=== PATIENT | female | born 1945 | race Caucasian/White ===

== ENCOUNTER 2016-11-02 09:31 | Emergency (ER) | payer MEDICARE ==
[~2016-11-02] VITALS: Ht 160 cm; Wt 78.0 kg
[~2016-11-02 09:31] MED LIST: BUPR300T4 PO; CYCL-259 PO; DEXL60CA PO; DILT180C72 PO; ESZO3TAB9 PO; LETR2.5T PO; LISI1TAB7 PO; MULT1TAB11 PO; NAPR500T3 PO; OXYC20TA2 PO; OXYC80TA25 PO; VENL150T PO
[2016-11-02] MEDS ORDERED: OXYC20TA2 PO (09:54)
[2016-11-02] MEDS ORDERED: FURO-93 PO (09:56)
[2016-11-02] MEDS ORDERED: LEVO500T8 PO (10:01)
[2016-11-02] MEDS ORDERED: ZOLP10TA PO (10:02)
[2016-11-02 10:41] VITALS: BP 99/79
== END 2016-11-02 11:07 | disposition home or self-care (01) ==
LOC: ED 10:40
DX: S49.92XA Unspecified injury of left shoulder and upper arm, initial encounter (principal); I10 Essential (primary) hypertension; W01.0XXA Fall on same level from slipping, tripping and stumbling without subsequent striking against object, initial encounter; Y93.89 Activity, other specified; Y92.89 Other specified places as the place of occurrence of the external cause; Y99.8 Other external cause status
CPT/HCPCS: 73060; 99284; J7512

== ENCOUNTER 2017-04-25 16:02 | Emergency (ER) | payer MEDICARE ==
[~2017-04-25] VITALS: Ht 170.2 cm; Wt 82.0 kg
[~2017-04-25 16:02] MED LIST changes: -DEXL60CA PO; +DEXL60CA2 PO; +ESZO3TAB28 PO; -ESZO3TAB9 PO; +FURO-93 PO; +LEVO500T8 PO; +ZOLP10TA PO
[2017-04-25 16:11] VITALS: BP 119/59
[2017-04-25] MEDS ORDERED: SODIUM CHLORIDE 0.9% 1,000 ML IV ONE (16:18)
[2017-04-25] MEDS ORDERED: SODIUM CHLORIDE FLUSH 10ML SYR IVF ONE (16:30)
[2017-04-25] MEDS ORDERED: SODIUM CHLORIDE 0.9% 1,000ML IVBOLUS ONE (16:30)
[2017-04-25 16:44] LABS: HEMATOCRIT 36.5 % (34.6-47.8); HEMOGLOBIN 12.1 g/dL (11.7-16.4)
[2017-04-25 16:50] LABS: BLOOD UREA NITROGEN 23 mg/dL (7-18)
== END 2017-04-25 19:11 | disposition home or self-care (01) ==
LOC: ED 16:51
DX: K92.1 Melena (principal); R19.7 Diarrhea, unspecified; I10 Essential (primary) hypertension; Z90.49 Acquired absence of other specified parts of digestive tract
CPT/HCPCS: 36415; 74020; 74176; 80048; 82040; 85025; 85610; 93005; 99285

== ENCOUNTER 2017-07-18 12:56 | Inpatient (IN) | payer MEDICARE ==
[~2017-07-18] VITALS: Ht 160 cm; Wt 83.3 kg
[~2017-07-18 12:56] MED LIST changes: -NAPR500T3 PO; +NAPR500T4 PO
[2017-07-18] MEDS ORDERED: [UNRECOGNIZED DRUG - OTHER] MC PRN (13:30)
[2017-07-18] MEDS ORDERED: SODIUM CHLORIDE FLUSH 10ML SYR IVF ONE (13:30)
[2017-07-18] MEDS ORDERED: MIRA25TA PO (13:36)
[2017-07-18] MEDS ORDERED: PREG25CA PO (13:36)
[2017-07-18] MEDS ORDERED: RANI-276 PO (13:36)
[2017-07-18] MEDS ORDERED: RABE20TA18 PO (13:36)
[2017-07-18] MEDS ORDERED: MECL12.52 PO (13:36)
[2017-07-18 13:50] LABS: HEMATOCRIT 36.5 % (34.6-47.8); HEMOGLOBIN 12.2 g/dL (11.7-16.4); WHITE BLOOD COUNT 5.4 x10^3/uL (3.4-10)
[2017-07-18 14:00] LABS: BLOOD UREA NITROGEN 19 mg/dL (7-18)
[2017-07-18 14:07] LABS: ASPARTATE AMINO TRANSFERASE 14 U/L (15-37)
[2017-07-18 14:21] LABS: IS PT STATUS REG ER OR PRE ER? YES
[2017-07-18] MEDS ORDERED: SODIUM CHLORIDE 0.9% 1,000 ML IV ONE (14:47)
[2017-07-18] MEDS ORDERED: HEPARIN 5,000 UNITS/ML, 1ML SQ SCH (15:00)
[2017-07-18] MEDS ORDERED: LABETALOL 5MG/ML, 20ML IVPush PRN (15:00)
[2017-07-18] MEDS ORDERED: ACETAMINOPHEN 325 MG TABLET PO PRN (15:00)
[2017-07-18] MEDS ORDERED: DOCUSATE 100 MG CAPSULE PO PRN (15:00)
[2017-07-18] MEDS ORDERED: POLYETHYLENE GLYCOL 17 GM PACKET PO PRN (15:00)
[2017-07-18] MEDS ORDERED: SODIUM CHLORIDE FLUSH 10ML SYR IVF PRN (15:00)
[2017-07-18] MEDS ORDERED: ONDANSETRON 2MG/ML, 2ML IVPush PRN (15:00)
[2017-07-18] MEDS ORDERED: BISACODYL 10 MG SUPP PR PRN (15:00)
[2017-07-18] MEDS ORDERED: NAPROXEN 500 MG TABLET PO PRN (15:30)
[2017-07-18] MEDS ORDERED: PREGABALIN 25 MG CAPSULE PO SCH (15:30)
[2017-07-18 16:56] VITALS: BP 103/63
[2017-07-18 16:57] VITALS: BP 122/68
[2017-07-18 16:58] VITALS: BP 122/69
[2017-07-18] MEDS ORDERED: PLEASE ENTER HEIGHT AND WEIGHT MC SCH ×3 (17:00→17:30)
[2017-07-18] MEDS ORDERED: PLEASE ENTER PATIENTS WEIGHT MC SCH (17:00)
[2017-07-18] MEDS ORDERED: HEPARIN 5,000 UNITS/ML, 1ML IV ONE (17:30)
[2017-07-18] MEDS ORDERED: HEPARIN 25,000 UNITS/500ML PMX 500 ML IV PRN (17:30)
[2017-07-18] MEDS ORDERED: HEPARIN 5,000 UNITS/ML, 1ML IV PRN (17:30)
[2017-07-18] MEDS: SODIUM CHLORIDE 0.9% 1,000 ML IV SCH (17:46)
[2017-07-18] MEDS: OXYcodone IR 30 MG TABLET PO SCH ×2 (17:46→21:00)
[2017-07-18 18:12] LABS: IS PT STATUS REG ER OR PRE ER? NO
[2017-07-18 20:00] VITALS: BP 105/59
[2017-07-18 20:01] VITALS: BP 121/68
[2017-07-18 20:02] VITALS: BP 125/69
[2017-07-18] MEDS: HEPARIN 5,000 UNITS/ML, 1ML SQ SCH (20:29)
[2017-07-18] MEDS ORDERED: BUPROPION SR 150 MG TABLET PO SCH (21:00)
[2017-07-18] MEDS: ZOLPIDEM 10MG TABLET PO SCH (21:00)
[2017-07-18] MEDS ORDERED: ZOLPIDEM 5MG TABLET ONE (22:30)
[2017-07-18] MEDS: GUAIFENESIN ER 600 MG TABLET PO SCH (22:33)
[2017-07-18] MEDS: BUPROPION SR 150 MG TABLET PO SCH (22:53)
[2017-07-19] VITALS (10 sets, daily range): BP systolic 117–165; BP diastolic 63–86
[2017-07-19 01:22] LABS: IS PT STATUS REG ER OR PRE ER? NO
[2017-07-19] MEDS: SODIUM CHLORIDE 0.9% 1,000 ML IV SCH (03:22)
[2017-07-19] MEDS ORDERED: OXYcodone IR 5MG TABLET ONE ×2 (04:47→20:49)
[2017-07-19] MEDS: HEPARIN 5,000 UNITS/ML, 1ML SQ SCH ×3 (04:52→20:57)
[2017-07-19] MEDS: OXYcodone IR 30 MG TABLET PO SCH ×4 (04:52→20:55)
[2017-07-19 05:38] LABS: HEMOGLOBIN 11.1 g/dL (11.7-16.4)
[2017-07-19 06:14] LABS: ASPARTATE AMINO TRANSFERASE 14 U/L (15-37); BLOOD UREA NITROGEN 18 mg/dL (7-18)
[2017-07-19] MEDS ORDERED: HYDROCHLOROTHIAZIDE 25 MG TABLET PO SCH (09:00)
[2017-07-19] MEDS ORDERED: LISINOPRIL 20 MG TABLET PO SCH (09:00)
[2017-07-19] MEDS: LISINOPRIL 20 MG TABLET PO SCH (09:08)
[2017-07-19] MEDS: HYDROCHLOROTHIAZIDE 25 MG TABLET PO SCH (09:08)
[2017-07-19] MEDS: DILTIAZEM CD 180 MG CAP.ER.24H PO SCH (09:08)
[2017-07-19] MEDS: GUAIFENESIN ER 600 MG TABLET PO SCH ×2 (09:08→20:57)
[2017-07-19] MEDS: BUPROPION SR 150 MG TABLET PO SCH ×2 (09:08→20:57)
[2017-07-19 15:01] LABS: ABG COLLECTION SITE RIGHT BRACHIAL
[2017-07-19] MEDS ORDERED: BUPR300T49 PO (18:00)
[2017-07-19] MEDS ORDERED: PREG150C PO (18:00)
[2017-07-19] MEDS ORDERED: ZOLPIDEM 5MG TABLET ONE (20:49)
[2017-07-19] MEDS: ZOLPIDEM 10MG TABLET PO SCH (20:56)
[2017-07-19] MEDS ORDERED: POTA10TA11 PO (21:31)
[2017-07-20 02:00] VITALS: BP 153/72
[2017-07-20] MEDS: HEPARIN 5,000 UNITS/ML, 1ML SQ SCH ×2 (04:30→12:30)
[2017-07-20 05:49] LABS: HEMATOCRIT 34.8 % (34.6-47.8); HEMOGLOBIN 11.7 g/dL (11.7-16.4); WHITE BLOOD COUNT 5.9 x10^3/uL (3.4-10)
[2017-07-20] MEDS: OXYcodone IR 30 MG TABLET PO SCH ×2 (05:55→11:00)
[2017-07-20 06:03] LABS: BLOOD UREA NITROGEN 14 mg/dL (7-18)
[2017-07-20 07:27] VITALS: BP 137/72
[2017-07-20] MEDS: DILTIAZEM CD 180 MG CAP.ER.24H PO SCH (09:08)
[2017-07-20] MEDS: LISINOPRIL 20 MG TABLET PO SCH (09:09)
[2017-07-20] MEDS: HYDROCHLOROTHIAZIDE 25 MG TABLET PO SCH (09:09)
[2017-07-20] MEDS: GUAIFENESIN ER 600 MG TABLET PO SCH (09:10)
[2017-07-20] MEDS: BUPROPION SR 150 MG TABLET PO SCH (09:10)
[2017-07-20] MEDS ORDERED: OXYcodone IR 5MG TABLET ONE (12:01)
[2017-07-20 13:40] VITALS: BP 113/63
== END 2017-07-20 16:13 | disposition home or self-care (01) | DRG 682 ==
LOC: ED 14:00 → 4EST 16:34 → DCLOUNGE 07-20 16:05
PROVIDERS: ADMIT Internal Medicine; ATTEND Internal Medicine
DX: N17.0 Acute kidney failure with tubular necrosis (principal); J96.01 Acute respiratory failure with hypoxia; E44.0 Moderate protein-calorie malnutrition; W18.30XA Fall on same level, unspecified, initial encounter; I11.9 Hypertensive heart disease without heart failure; M79.7 Fibromyalgia; J20.8 Acute bronchitis due to other specified organisms; R91.8 Other nonspecific abnormal finding of lung field; Z77.29 Contact with and (suspected) exposure to other hazardous substances; Z66 Do not resuscitate; F32.9 Major depressive disorder, single episode, unspecified; Z85.3 Personal history of malignant neoplasm of breast; Z91.041 Radiographic dye allergy status; Z68.32 Body mass index [BMI] 32.0-32.9, adult; Z90.11 Acquired absence of right breast and nipple; Z90.49 Acquired absence of other specified parts of digestive tract; Z80.9 Family history of malignant neoplasm, unspecified; Z79.899 Other long term (current) drug therapy
CPT/HCPCS: 36415; 36600; 71010; 71250; 78582; 80048; 80053; 82803; 83880; 84443; 84484; 85025; 85379; 85610; 85730; 93005; 93306; 93970; 96360; J1644; A9540; A9558; J7030

== ENCOUNTER 2017-07-26 15:45 | Inpatient (IN) | payer MEDICARE ==
[~2017-07-26] VITALS: Ht 152.4 cm; Wt 82.6 kg
[~2017-07-26 15:45] MED LIST changes: +BUPR300T49 PO; +MECL12.52 PO; +MIRA25TA PO; +POTA10TA11 PO; +PREG150C PO; +PREG25CA PO; +RABE20TA18 PO; +RANI-276 PO
[2017-07-26] MEDS ORDERED: SODIUM CHLORIDE FLUSH 10ML SYR IVF ONE (16:00)
[2017-07-26] MEDS: ALBUTEROL 0.5%, 20ML NPPB SCH ×2 (16:12→18:10)
[2017-07-26] MEDS ORDERED: ALBUTEROL SULFATE 2.5 MG/3 ML ONE (16:12)
[2017-07-26 16:34] LABS: BASOPHILS # (AUTO) 0.01 x10^3/uL (0-0.1); BASOPHILS % (AUTO) 0 % (0-1); EOSINOPHILS # (AUTO) 0.12 x10^3/uL (0-0.4); EOSINOPHILS % (AUTO) 2 % (1-7); LYMPHOCYTES # (AUTO) 0.56 x10^3/uL (1-3.4); LYMPHOCYTES % (AUTO) 8 % (22-44); MD NO; MEAN CORPUSCULAR HGB CONC 33.1 g/dL (32.4-35.8); MEAN CORPUSCULAR VOLUME 93.7 fL (80-100); MEAN PLATELET VOLUME 7.9 fL (7.4-10.4); MONOCYTES # (AUTO) 0.64 x10^3/uL (0.2-0.8); MONOCYTES % (AUTO) 9 % (2-9); NEUTROPHILS % (AUTO) 81 % (42-75); PLATELET COUNT 204 x10^3/uL (130-400); RED BLOOD COUNT 3.59 x10^6/uL (3.82-5.3); RED CELL DISTRIBUTION WIDTH 15.5 % (9.6-15.2)
[2017-07-26 16:45] LABS: ALANINE AMINOTRANSFERASE 19 U/L (12-78); ALBUMIN 3.1 g/dL (3.4-5.0); ANION GAP 8 mmol/L (5-15); CALCIUM 8.4 mg/dL (8.5-10.1); CHLORIDE 98 mmol/L (98-107); CREATININE 1.75 mg/dL (0.55-1.02)
[2017-07-26 16:49] LABS: ALKALINE PHOSPHATASE 108 U/L (45-117); BILIRUBIN,TOTAL 0.9 mg/dL (0.2-1.0); TOTAL PROTEIN 6.6 g/dL (6.4-8.2); TROPONIN I < 0.015 ng/mL (0.000-0.045)
[2017-07-26] MEDS ORDERED: ALBUTEROL 0.5%, 20ML ONE ×2 (17:47→18:02)
[2017-07-26 20:20] VITALS: BP 94/67
[2017-07-26] MEDS ORDERED: FUROSEMIDE 40 MG/4 ML IV ONE (21:00)
[2017-07-26 21:11] LABS: HEMOGLOBIN A1C 5.3 % (4.2-6.3)
[2017-07-26] MEDS: methylPREDNISolone SOD SUCC 125 MG/2 ML IVPush SCH (22:00)
[2017-07-26] MEDS: HEPARIN 5,000 UNITS/ML, 1ML SQ SCH (22:01)
[2017-07-26] MEDS: SODIUM CHLORIDE 0.9% 1,000 ML IV SCH (22:22)
[2017-07-27] MEDS: methylPREDNISolone SOD SUCC 125 MG/2 ML IVPush SCH ×4 (03:57→20:53)
[2017-07-27] MEDS: HEPARIN 5,000 UNITS/ML, 1ML SQ SCH ×3 (03:57→20:54)
[2017-07-27] MEDS: ASPIRIN 325 MG TABLET EC PO SCH (04:29)
[2017-07-27 04:51] LABS: MEAN CORPUSCULAR HEMOGLOBIN 31.2 pg (27.0-34.8); MEAN CORPUSCULAR HGB CONC 33.6 g/dL (32.4-35.8); MEAN CORPUSCULAR VOLUME 92.9 fL (80-100); MEAN PLATELET VOLUME 7.9 fL (7.4-10.4); PLATELET COUNT 202 x10^3/uL (130-400); RED BLOOD COUNT 3.51 x10^6/uL (3.82-5.3); RED CELL DISTRIBUTION WIDTH 15.4 % (9.6-15.2)
[2017-07-27 05:04] LABS: ALBUMIN 3.1 g/dL (3.4-5.0); CALCIUM 8.2 mg/dL (8.5-10.1); CHLORIDE 99 mmol/L (98-107)
[2017-07-27 05:16] LABS: ALANINE AMINOTRANSFERASE 25 U/L (12-78); ALKALINE PHOSPHATASE 115 U/L (45-117); ANION GAP 9 mmol/L (5-15); BILIRUBIN,TOTAL 0.7 mg/dL (0.2-1.0); CHOL/HDL RATIO 2.3; CHOLESTEROL, TOTAL 175 mg/dL (140-239); CREATININE 1.61 mg/dL (0.55-1.02); HDL CHOL % 43 % (28-40); HDL CHOLESTEROL (DIRECT) 75 mg/dL (40-60); LDL CHOLESTEROL,CALCULATED 89 mg/dL (54-169); LDL/HDL RATIO 1.2 (0.5-3.0); THYROID STIMULATING HORMONE 0.722 mIU/L (0.358-3.740); TOTAL PROTEIN 6.7 g/dL (6.4-8.2); TRIGLYCERIDES 57 mg/dL (50-200); VLDL CHOLESTEROL 11 mg/dL (0-25)
[2017-07-27] MEDS ORDERED: ALBUTEROL/IPRATROPIUM 2.5MG/0.5MG, 3 ML ONE (06:50)
[2017-07-27 07:06] LABS: MD YES
[2017-07-27 07:07] LABS: BANDS%(MANUAL) 13 % (0-7); LYMPHS% (MANUAL) 1 % (22-44); MONOS% (MANUAL) 1 % (2-9); SEGS% (MANUAL) 85 % (42-75)
[2017-07-27 07:08] LABS: <PLATELET ESTIMATE> ADEQUATE; <PLT MORPHOLOGY> NORMAL PLT MORPH; <RBC MORPHOLOGY> NORMAL
[2017-07-27] MEDS: ALBUTEROL/IPRATROPIUM 2.5MG/0.5MG, 3 ML NPPB SCH ×4 (08:36→20:30)
[2017-07-27 10:00] VITALS: BP 118/76
[2017-07-27] MEDS: OXYcodone IR 30 MG TABLET PO SCH ×3 (11:00→20:54)
[2017-07-27] MEDS ORDERED: OXYcodone IR 5MG TABLET ONE (11:45)
[2017-07-27] MEDS: SODIUM CHLORIDE 0.9% 1,000 ML IV SCH ×2 (12:20→21:59)
[2017-07-27 13:04] VITALS: BP 112/58
[2017-07-27] MEDS: PREGABALIN 150 MG CAPSULE PO SCH ×2 (16:14→20:53)
[2017-07-27 19:42] VITALS: BP 128/74
[2017-07-27] MEDS: ZOLPIDEM 10MG TABLET PO PRN (21:59)
[2017-07-28 01:50] VITALS: BP 120/68
[2017-07-28] MEDS: methylPREDNISolone SOD SUCC 125 MG/2 ML IVPush SCH ×2 (03:19→09:30)
[2017-07-28 04:42] LABS: ANION GAP 8 mmol/L (5-15); CALCIUM 8.6 mg/dL (8.5-10.1); CHLORIDE 105 mmol/L (98-107); CREATININE 1.34 mg/dL (0.55-1.02)
[2017-07-28] MEDS: OXYcodone IR 30 MG TABLET PO SCH ×4 (05:54→19:59)
[2017-07-28] MEDS: HEPARIN 5,000 UNITS/ML, 1ML SQ SCH (05:55)
[2017-07-28 06:54] VITALS: BP 145/70
[2017-07-28] MEDS: MULTIVITAMINS/MINERALS TABLET PO SCH (07:43)
[2017-07-28] MEDS: BUPROPION SR 150 MG TABLET PO SCH ×2 (07:43→19:56)
[2017-07-28] MEDS: ASPIRIN 325 MG TABLET EC PO SCH (07:44)
[2017-07-28] MEDS: PREGABALIN 150 MG CAPSULE PO SCH ×3 (07:44→19:56)
[2017-07-28] MEDS: DILTIAZEM CD 180 MG CAP.ER.24H PO SCH (07:44)
[2017-07-28] MEDS: SODIUM CHLORIDE 0.9% 1,000 ML IV SCH (07:46)
[2017-07-28] MEDS: ALBUTEROL/IPRATROPIUM 2.5MG/0.5MG, 3 ML NPPB SCH ×4 (08:40→18:44)
[2017-07-28] MEDS ORDERED: FUROSEMIDE 40 MG/4 ML IV ONE (11:30)
[2017-07-28] MEDS ORDERED: AMIODARONE 150 MG in DEXTROSE 5% 100 ML IV ONE (13:00)
[2017-07-28] MEDS ORDERED: AMIODARONE 900 MG in DEXTROSE 5% 482 ML IV PRN (13:00)
[2017-07-28] MEDS ORDERED: FILTER 0.22 MICRON IV PRN (13:00)
[2017-07-28 14:45] VITALS: BP 131/69
[2017-07-28 19:48] VITALS: BP 101/55
[2017-07-28] MEDS: APIXABAN 5 MG TABLET PO SCH (19:56)
[2017-07-28] MEDS: ACETAMINOPHEN 325 MG TABLET PO PRN (19:57)
[2017-07-28] MEDS: ZOLPIDEM 10MG TABLET PO PRN (21:57)
[2017-07-29 06:04] VITALS: BP 159/81
[2017-07-29] MEDS: OXYcodone IR 30 MG TABLET PO SCH ×4 (06:14→21:00)
[2017-07-29 06:55] LABS: ALBUMIN 2.6 g/dL (3.4-5.0); ANION GAP 5 mmol/L (5-15); CALCIUM 8.6 mg/dL (8.5-10.1); CHLORIDE 103 mmol/L (98-107); CREATININE 1.41 mg/dL (0.55-1.02)
[2017-07-29 07:18] VITALS: BP 122/74
[2017-07-29] MEDS: ALBUTEROL/IPRATROPIUM 2.5MG/0.5MG, 3 ML NPPB SCH ×4 (07:42→18:51)
[2017-07-29] MEDS: PREGABALIN 150 MG CAPSULE PO SCH ×3 (08:16→21:42)
[2017-07-29] MEDS: DILTIAZEM CD 180 MG CAP.ER.24H PO SCH (08:16)
[2017-07-29] MEDS: MULTIVITAMINS/MINERALS TABLET PO SCH (08:16)
[2017-07-29] MEDS: BUPROPION SR 150 MG TABLET PO SCH ×2 (08:16→21:42)
[2017-07-29] MEDS: APIXABAN 5 MG TABLET PO SCH ×2 (08:16→21:42)
[2017-07-29 12:39] VITALS: BP 124/63
[2017-07-29] MEDS ORDERED: FILTER 0.22 MICRON IV PRN (15:00)
[2017-07-29] MEDS ORDERED: AMIODARONE 900 MG in DEXTROSE 5% 482 ML IV PRN (15:00)
[2017-07-29] MEDS ORDERED: AMIODARONE 150 MG in DEXTROSE 5% 100 ML IV ONE (15:00)
[2017-07-29 19:32] VITALS: BP 119/78
[2017-07-29] MEDS: ZOLPIDEM 10MG TABLET PO PRN (21:42)
[2017-07-29] MEDS: ACETAMINOPHEN 325 MG TABLET PO PRN (21:42)
[2017-07-30 00:57] VITALS: BP 127/85
[2017-07-30] MEDS: OXYcodone IR 30 MG TABLET PO SCH ×2 (05:50→12:20)
[2017-07-30] MEDS: ALBUTEROL/IPRATROPIUM 2.5MG/0.5MG, 3 ML NPPB SCH ×3 (06:00→15:17)
[2017-07-30 07:07] VITALS: BP 115/65
[2017-07-30] MEDS: MULTIVITAMINS/MINERALS TABLET PO SCH (09:00)
[2017-07-30] MEDS: DILTIAZEM CD 180 MG CAP.ER.24H PO SCH (09:29)
[2017-07-30] MEDS: APIXABAN 5 MG TABLET PO SCH (09:29)
[2017-07-30] MEDS: BUPROPION SR 150 MG TABLET PO SCH (09:29)
[2017-07-30] MEDS: PREGABALIN 150 MG CAPSULE PO SCH (09:29)
[2017-07-30] MEDS: ACETAMINOPHEN 325 MG TABLET PO PRN (09:36)
[2017-07-30] MEDS ORDERED: PROPOFOL 10 MG/ML, 20ML ONE (11:28)
[2017-07-30] MEDS ORDERED: AMIODARONE 200 MG TABLET PO SCH (11:30)
[2017-07-30 12:30] VITALS: BP 116/61
[2017-07-30] MEDS ORDERED: AMIO200T42 PO (14:37)
[2017-07-30] MEDS ORDERED: IPRA3AMP NPPB (14:37)
[2017-07-30] MEDS ORDERED: PRED20TA PO (14:37)
[2017-07-30] MEDS ORDERED: DILT120C9 PO (14:37)
[2017-07-30] MEDS ORDERED: APIX5TAB PO (14:37)
[2017-07-31] MEDS ORDERED: DILTIAZEM 120 MG CAP.ER.24H PO SCH (09:00)
== END 2017-07-30 17:35 | disposition home or self-care (01) | DRG 682 ==
LOC: ED 19:19 → EDIP 20:03 → 4WST 20:08 → CCU 21:02 → 3NW 07-27 11:58 → 4WST 07-28 10:49
PROVIDERS: ADMIT Surgery; ATTEND Internal Medicine
PROC: 02HV33Z Insertion of Infusion Device into Superior Vena Cava, Percutaneous Approach (ICD-10-PCS; principal; 2017-07-28)
PROC: B548ZZA Ultrasonography of Superior Vena Cava, Guidance (ICD-10-PCS; 2017-07-28)
PROC: 5A2204Z Restoration of Cardiac Rhythm, Single (ICD-10-PCS; 2017-07-30)
DX: N17.0 Acute kidney failure with tubular necrosis (principal); J96.21 Acute and chronic respiratory failure with hypoxia; E43 Unspecified severe protein-calorie malnutrition; E87.2 Acidosis; I48.91 Unspecified atrial fibrillation; K51.90 Ulcerative colitis, unspecified, without complications; D64.9 Anemia, unspecified; J44.1 Chronic obstructive pulmonary disease with (acute) exacerbation; Z99.81 Dependence on supplemental oxygen; J96.22 Acute and chronic respiratory failure with hypercapnia; I11.9 Hypertensive heart disease without heart failure; F32.9 Major depressive disorder, single episode, unspecified; G89.4 Chronic pain syndrome; M79.7 Fibromyalgia; Z79.899 Other long term (current) drug therapy; Z68.35 Body mass index [BMI] 35.0-35.9, adult; Z85.3 Personal history of malignant neoplasm of breast; Z87.891 Personal history of nicotine dependence; Z90.10 Acquired absence of unspecified breast and nipple; Z90.49 Acquired absence of other specified parts of digestive tract
CPT/HCPCS: 36415; 36569; 36600; 71010; 76937; 77001; 80048; 80053; 80061; 82040; 82803; 83036; 83605; 83735; 83880; 84100; 84443; 84484; 85025; 87040; 87081; 92960; 93005; 94640; 94644; 94660; 99291; J1644; J1940; J2704; J7620; C1751; J0282; J2930; J7030; J7060; J7512

== ENCOUNTER 2017-09-18 06:05 | Inpatient (IN) | payer MEDICARE ==
[~2017-09-18] VITALS: Ht 160 cm; Wt 95.7 kg
[~2017-09-18 06:05] MED LIST changes: +AMIO200T42 PO; +APIX5TAB PO; +BUPR75TA6 PO; +DILT120C64 PO; +DILT120C9 PO; +ELUX75TA PO; +FURO20TA3 PO; +IPRA3AMP NPPB; +PRED20TA PO; +VILA10TA PO
[2017-09-18] MEDS ORDERED: SODIUM CHLORIDE 0.9% 1,000ML IVBOLUS ONE (06:30)
[2017-09-18 07:36] LABS: BASOPHILS # (AUTO) 0.03 x10^3/uL (0-0.1); BASOPHILS % (AUTO) 0 % (0-1); EOSINOPHILS # (AUTO) 0.03 x10^3/uL (0-0.4); EOSINOPHILS % (AUTO) 0 % (1-7); LYMPHOCYTES # (AUTO) 0.61 x10^3/uL (1-3.4); LYMPHOCYTES % (AUTO) 7 % (22-44); MD NO; MEAN CORPUSCULAR HGB CONC 33.2 g/dL (32.4-35.8); MEAN CORPUSCULAR VOLUME 93.5 fL (80-100); MEAN PLATELET VOLUME 7.7 fL (7.4-10.4); MONOCYTES # (AUTO) 0.45 x10^3/uL (0.2-0.8); MONOCYTES % (AUTO) 5 % (2-9); NEUTROPHILS # (AUTO) 7.76 x10^3/uL (1.8-6.8); NEUTROPHILS % (AUTO) 87 % (42-75); PLATELET COUNT 341 x10^3/uL (130-400); RED BLOOD COUNT 4.16 x10^6/uL (3.82-5.3); RED CELL DISTRIBUTION WIDTH 16.4 % (9.6-15.2)
[2017-09-18 07:43] LABS: ALANINE AMINOTRANSFERASE 21 U/L (12-78); ALBUMIN 3.4 g/dL (3.4-5.0); ANION GAP 9 mmol/L (5-15); CALCIUM 8.9 mg/dL (8.5-10.1); CHLORIDE 106 mmol/L (98-107); CREATININE 0.67 mg/dL (0.55-1.02)
[2017-09-18 07:45] LABS: ALKALINE PHOSPHATASE 123 U/L (45-117); BILIRUBIN,TOTAL 0.6 mg/dL (0.2-1.0); CREATINE KINASE, TOTAL 362 U/L (26-192); TOTAL PROTEIN 6.7 g/dL (6.4-8.2)
[2017-09-18 08:22] LABS: INTERNATIONAL NORMALIZED RATIO 1.15 (0.93-1.1); PROTHROMBIN TIME 11.8 Seconds (9.6-11.5)
[2017-09-18] MEDS ORDERED: GADOBUTROL 7.5 MMOL/7.5 ML PFS ONE (09:12)
[2017-09-18] MEDS ORDERED: PIPERACILLIN/TAZO/PMX 4.5GM 100 ML IV ONE (09:30)
[2017-09-18] MEDS ORDERED: BISACODYL 10 MG SUPP PR PRN (11:00)
[2017-09-18] MEDS ORDERED: ALBUTEROL/IPRATROPIUM 2.5MG/0.5MG, 3 ML NPPB PRN ×2 (11:00)
[2017-09-18] MEDS ORDERED: ENOXAPARIN 40 MG/0.4 ML SQ SCH (11:00)
[2017-09-18] MEDS ORDERED: POLYETHYLENE GLYCOL 17 GM PACKET PO PRN (11:00)
[2017-09-18] MEDS ORDERED: DOCUSATE 100 MG CAPSULE PO PRN (11:00)
[2017-09-18] MEDS: ALBUTEROL/IPRATROPIUM 2.5MG/0.5MG, 3 ML NPPB SCH ×3 (11:00→19:58)
[2017-09-18] MEDS: OXYcodone IR 30 MG TABLET PO SCH ×3 (11:00→20:55)
[2017-09-18] MEDS ORDERED: ENALAPRILAT 1.25 MG/ML, 2ML IVPush PRN (11:00)
[2017-09-18] MEDS ORDERED: ONDANSETRON 2MG/ML, 2ML IVPush PRN (11:00)
[2017-09-18] MEDS ORDERED: ACETAMINOPHEN 325 MG TABLET PO PRN (11:00)
[2017-09-18] MEDS ORDERED: CEFTRIAXONE PMX 1GM/50ML 50 ML ONE (11:08)
[2017-09-18] MEDS: CEFTRIAXONE PMX 1GM/50ML 50 ML IV SCH (12:04)
[2017-09-18 14:27] VITALS: BP 172/81
[2017-09-18 15:39] LABS: CLOSTRIDIUM DIFFICILE ANTIGEN NEGATIVE; CLOSTRIDIUM DIFFICILE TOXIN NEGATIVE (Negative)
[2017-09-18] MEDS: PREGABALIN 150 MG CAPSULE PO SCH ×2 (17:30→20:55)
[2017-09-18] MEDS: POTASSIUM CHLORIDE 20 MEQ TAB.ER.PRT PO SCH (17:30)
[2017-09-18] MEDS ORDERED: LORazepam 0.5MG TABLET PO ONE (18:00)
[2017-09-18 19:38] VITALS: BP 166/75
[2017-09-18] MEDS: ZOLPIDEM 10MG TABLET PO SCH (20:51)
[2017-09-18] MEDS: SODIUM CHLORIDE FLUSH 10ML SYR IVF SCH (20:51)
[2017-09-18] MEDS: DEXAMETHASONE INTENSOL 1 MG/ML ORAL SOL PO SCH (20:55)
[2017-09-18] MEDS: AMIODARONE 200 MG TABLET PO SCH (20:55)
[2017-09-18] MEDS: APIXABAN 5 MG TABLET PO SCH (20:55)
[2017-09-18] MEDS: DOXYCYCLINE 50 MG/5 ML ORAL SUSP PO SCH (20:56)
[2017-09-19 02:16] VITALS: BP 130/89
[2017-09-19 05:11] LABS: ALANINE AMINOTRANSFERASE 20 U/L (12-78); ALBUMIN 2.9 g/dL (3.4-5.0); ANION GAP 11 mmol/L (5-15); CALCIUM 8.5 mg/dL (8.5-10.1); CHLORIDE 108 mmol/L (98-107); CREATININE 0.63 mg/dL (0.55-1.02)
[2017-09-19 05:13] LABS: ALKALINE PHOSPHATASE 104 U/L (45-117); BILIRUBIN,TOTAL 0.3 mg/dL (0.2-1.0); TOTAL PROTEIN 6.4 g/dL (6.4-8.2)
[2017-09-19 05:32] LABS: MEAN CORPUSCULAR HEMOGLOBIN 31.3 pg (27.0-34.8); MEAN CORPUSCULAR HGB CONC 33.3 g/dL (32.4-35.8); MEAN PLATELET VOLUME 8.1 fL (7.4-10.4); PLATELET COUNT 310 x10^3/uL (130-400); RED BLOOD COUNT 3.85 x10^6/uL (3.82-5.3); RED CELL DISTRIBUTION WIDTH 16.3 % (9.6-15.2)
[2017-09-19] MEDS: OXYcodone IR 30 MG TABLET PO SCH ×4 (06:28→20:17)
[2017-09-19 06:29] LABS: BASOPHILS % (AUTO) 0 % (0-1); EOSINOPHILS # (AUTO) 0.01 x10^3/uL (0-0.4); EOSINOPHILS % (AUTO) 0 % (1-7); LYMPHOCYTES # (AUTO) 0.44 x10^3/uL (1-3.4); LYMPHOCYTES % (AUTO) 6 % (22-44); MD SCAN; MONOCYTES # (AUTO) 0.15 x10^3/uL (0.2-0.8); MONOCYTES % (AUTO) 2 % (2-9); NEUTROPHILS # (AUTO) 6.47 x10^3/uL (1.8-6.8); NEUTROPHILS % (AUTO) 91 % (42-75)
[2017-09-19] MEDS: DILTIAZEM 120 MG CAP.ER.24H PO SCH (07:51)
[2017-09-19] MEDS: PREGABALIN 150 MG CAPSULE PO SCH ×3 (07:52→20:17)
[2017-09-19] MEDS: POTASSIUM CHLORIDE 20 MEQ TAB.ER.PRT PO SCH ×2 (07:52→16:50)
[2017-09-19] MEDS: DOXYCYCLINE 50 MG/5 ML ORAL SUSP PO SCH ×2 (07:52→20:17)
[2017-09-19] MEDS: APIXABAN 5 MG TABLET PO SCH ×2 (07:52→20:17)
[2017-09-19] MEDS: FUROSEMIDE 20 MG TABLET PO SCH (07:52)
[2017-09-19] MEDS: BUPROPION SR 150 MG TABLET PO SCH (07:52)
[2017-09-19] MEDS: DEXAMETHASONE INTENSOL 1 MG/ML ORAL SOL PO SCH ×2 (07:53→20:17)
[2017-09-19] MEDS: SODIUM CHLORIDE FLUSH 10ML SYR IVF SCH ×2 (07:53→20:17)
[2017-09-19] MEDS: AMIODARONE 200 MG TABLET PO SCH ×2 (07:53→20:17)
[2017-09-19 08:19] VITALS: BP 146/71
[2017-09-19] MEDS ORDERED: BUPROPION 75 MG TABLET PO SCH (09:00)
[2017-09-19] MEDS: ALBUTEROL/IPRATROPIUM 2.5MG/0.5MG, 3 ML NPPB SCH ×4 (09:00→20:00)
[2017-09-19] MEDS ORDERED: LORazepam 2 MG/ML, 1ML IVPush ONE (10:30)
[2017-09-19] MEDS: CEFTRIAXONE PMX 1GM/50ML 50 ML IV SCH (10:53)
[2017-09-19] MEDS ORDERED: GADOBUTROL 7.5 MMOL/7.5 ML PFS ONE (12:30)
[2017-09-19 13:07] VITALS: BP 150/79
[2017-09-19 19:37] VITALS: BP 127/62
[2017-09-19] MEDS: GUAIFENESIN/DM 100-10MG, 5ML UDC PO PRN (22:05)
[2017-09-19] MEDS: ZOLPIDEM 10MG TABLET PO SCH (22:05)
[2017-09-20 03:11] VITALS: BP 163/78
[2017-09-20 04:41] LABS: ANION GAP 6 mmol/L (5-15); CALCIUM 8.4 mg/dL (8.5-10.1); CHLORIDE 107 mmol/L (98-107); CREATININE 0.69 mg/dL (0.55-1.02)
[2017-09-20] MEDS: OXYcodone IR 30 MG TABLET PO SCH ×4 (04:52→20:41)
[2017-09-20] MEDS: GUAIFENESIN/DM 100-10MG, 5ML UDC PO PRN (05:08)
[2017-09-20] MEDS: ALBUTEROL/IPRATROPIUM 2.5MG/0.5MG, 3 ML NPPB SCH ×3 (07:15→21:15)
[2017-09-20] MEDS: APIXABAN 5 MG TABLET PO SCH ×2 (08:32→20:26)
[2017-09-20] MEDS: DOXYCYCLINE 50 MG/5 ML ORAL SUSP PO SCH ×2 (08:32→20:26)
[2017-09-20] MEDS: POTASSIUM CHLORIDE 20 MEQ TAB.ER.PRT PO SCH (08:32)
[2017-09-20] MEDS: AMIODARONE 200 MG TABLET PO SCH ×2 (08:32→20:26)
[2017-09-20] MEDS: DILTIAZEM 120 MG CAP.ER.24H PO SCH (08:32)
[2017-09-20] MEDS: PREGABALIN 150 MG CAPSULE PO SCH ×3 (08:32→20:26)
[2017-09-20] MEDS: DEXAMETHASONE INTENSOL 1 MG/ML ORAL SOL PO SCH ×2 (08:32→20:27)
[2017-09-20] MEDS: SODIUM CHLORIDE FLUSH 10ML SYR IVF SCH ×2 (08:33→20:27)
[2017-09-20] MEDS: FUROSEMIDE 20 MG TABLET PO SCH (08:33)
[2017-09-20] MEDS: BUPROPION SR 150 MG TABLET PO SCH (08:33)
[2017-09-20] MEDS: CEFTRIAXONE PMX 1GM/50ML 50 ML IV SCH (11:25)
[2017-09-20 15:15] VITALS: BP 171/53
[2017-09-20 19:29] VITALS: BP 154/81
[2017-09-20] MEDS ORDERED: DIPHENHYDRAMINE 25 MG CAPSULE PO ONE (20:30)
[2017-09-20] MEDS: ZOLPIDEM 10MG TABLET PO SCH (21:33)
[2017-09-21 03:14] VITALS: BP 160/81
[2017-09-21] MEDS: OXYcodone IR 30 MG TABLET PO SCH ×4 (05:19→19:54)
[2017-09-21 07:12] VITALS: BP 162/82
[2017-09-21] MEDS: ALBUTEROL/IPRATROPIUM 2.5MG/0.5MG, 3 ML NPPB SCH ×2 (07:12→21:00)
[2017-09-21] MEDS: PREGABALIN 150 MG CAPSULE PO SCH ×3 (07:30→19:54)
[2017-09-21] MEDS: FUROSEMIDE 20 MG TABLET PO SCH (07:30)
[2017-09-21] MEDS: AMIODARONE 200 MG TABLET PO SCH ×2 (07:31→19:54)
[2017-09-21] MEDS: DEXAMETHASONE INTENSOL 1 MG/ML ORAL SOL PO SCH ×2 (07:31→19:54)
[2017-09-21] MEDS: DOXYCYCLINE 50 MG/5 ML ORAL SUSP PO SCH ×2 (07:31→19:54)
[2017-09-21] MEDS: BUPROPION SR 150 MG TABLET PO SCH (07:31)
[2017-09-21] MEDS: APIXABAN 5 MG TABLET PO SCH ×2 (07:31→19:54)
[2017-09-21] MEDS: DILTIAZEM 120 MG CAP.ER.24H PO SCH (07:31)
[2017-09-21] MEDS: SODIUM CHLORIDE FLUSH 10ML SYR IVF SCH ×2 (07:32→19:56)
[2017-09-21] MEDS ORDERED: hydrOXyzine 10MG TABLET ONE ×2 (07:53→16:18)
[2017-09-21] MEDS: CEFTRIAXONE PMX 1GM/50ML 50 ML IV SCH (10:53)
[2017-09-21 13:55] VITALS: BP 130/67
[2017-09-21 20:00] VITALS: BP 147/52
[2017-09-21] MEDS: ZOLPIDEM 10MG TABLET PO SCH (22:15)
[2017-09-21] MEDS: hydrOXyzine 10 MG/5 ML ORAL SOL PO PRN (22:15)
[2017-09-22 02:00] VITALS: BP 159/82
[2017-09-22] MEDS: OXYcodone IR 30 MG TABLET PO SCH ×4 (05:38→19:22)
[2017-09-22 07:22] VITALS: BP 162/81
[2017-09-22] MEDS: SODIUM CHLORIDE FLUSH 10ML SYR IVF SCH ×2 (08:02→20:26)
[2017-09-22] MEDS: DOXYCYCLINE 50 MG/5 ML ORAL SUSP PO SCH ×2 (08:03→20:26)
[2017-09-22] MEDS: DEXAMETHASONE INTENSOL 1 MG/ML ORAL SOL PO SCH ×2 (08:03→20:26)
[2017-09-22] MEDS: FUROSEMIDE 20 MG TABLET PO SCH (08:03)
[2017-09-22] MEDS: BUPROPION SR 150 MG TABLET PO SCH (08:04)
[2017-09-22] MEDS: APIXABAN 5 MG TABLET PO SCH (08:04)
[2017-09-22] MEDS: PREGABALIN 150 MG CAPSULE PO SCH ×3 (08:04→20:26)
[2017-09-22] MEDS: AMIODARONE 200 MG TABLET PO SCH ×2 (08:04→20:26)
[2017-09-22] MEDS: DILTIAZEM 120 MG CAP.ER.24H PO SCH (08:05)
[2017-09-22] MEDS: ALBUTEROL/IPRATROPIUM 2.5MG/0.5MG, 3 ML NPPB SCH ×2 (08:52→21:00)
[2017-09-22] MEDS: CEFTRIAXONE PMX 1GM/50ML 50 ML IV SCH (11:18)
[2017-09-22 15:47] VITALS: BP 148/72
[2017-09-22] MEDS: hydrOXyzine 10 MG/5 ML ORAL SOL PO PRN (19:30)
[2017-09-22 20:00] VITALS: BP 124/71
[2017-09-22] MEDS: ZOLPIDEM 10MG TABLET PO SCH (20:26)
[2017-09-23 02:00] VITALS: BP 164/78
[2017-09-23] MEDS: OXYcodone IR 30 MG TABLET PO SCH ×4 (05:52→20:18)
[2017-09-23 07:29] VITALS: BP 157/89
[2017-09-23] MEDS: DEXAMETHASONE INTENSOL 1 MG/ML ORAL SOL PO SCH ×2 (07:42→20:18)
[2017-09-23] MEDS: DOXYCYCLINE 50 MG/5 ML ORAL SUSP PO SCH ×2 (07:43→20:18)
[2017-09-23] MEDS: AMIODARONE 200 MG TABLET PO SCH ×2 (07:43→20:18)
[2017-09-23] MEDS: BUPROPION SR 150 MG TABLET PO SCH (07:43)
[2017-09-23] MEDS: PREGABALIN 150 MG CAPSULE PO SCH ×3 (07:43→20:18)
[2017-09-23] MEDS: FUROSEMIDE 20 MG TABLET PO SCH (07:43)
[2017-09-23] MEDS: DILTIAZEM 120 MG CAP.ER.24H PO SCH (07:44)
[2017-09-23] MEDS: SODIUM CHLORIDE FLUSH 10ML SYR IVF SCH ×2 (07:44→20:17)
[2017-09-23] MEDS: ALBUTEROL/IPRATROPIUM 2.5MG/0.5MG, 3 ML NPPB SCH ×2 (08:48→19:03)
[2017-09-23] MEDS: hydrOXyzine 10 MG/5 ML ORAL SOL PO PRN ×2 (11:19→20:18)
[2017-09-23] MEDS: CEFTRIAXONE PMX 1GM/50ML 50 ML IV SCH (11:19)
[2017-09-23 13:35] VITALS: BP 94/58
[2017-09-23 18:58] VITALS: BP 122/70
[2017-09-23] MEDS: ZOLPIDEM 10MG TABLET PO SCH (21:28)
[2017-09-24 03:00] VITALS: BP 140/73
[2017-09-24] MEDS: OXYcodone IR 30 MG TABLET PO SCH ×4 (06:13→21:33)
[2017-09-24 06:55] VITALS: BP 157/74
[2017-09-24] MEDS: ALBUTEROL/IPRATROPIUM 2.5MG/0.5MG, 3 ML NPPB SCH (09:00)
[2017-09-24] MEDS: SODIUM CHLORIDE FLUSH 10ML SYR IVF SCH ×2 (09:16→21:36)
[2017-09-24] MEDS: BUPROPION SR 150 MG TABLET PO SCH (09:16)
[2017-09-24] MEDS: PREGABALIN 150 MG CAPSULE PO SCH ×3 (09:17→21:33)
[2017-09-24] MEDS: AMIODARONE 200 MG TABLET PO SCH ×2 (09:17→21:33)
[2017-09-24] MEDS: FUROSEMIDE 20 MG TABLET PO SCH (09:17)
[2017-09-24] MEDS: DOXYCYCLINE 50 MG/5 ML ORAL SUSP PO SCH ×2 (09:17→21:37)
[2017-09-24] MEDS: DEXAMETHASONE INTENSOL 1 MG/ML ORAL SOL PO SCH ×2 (09:17→21:38)
[2017-09-24] MEDS: DILTIAZEM 120 MG CAP.ER.24H PO SCH (09:18)
[2017-09-24] MEDS: CEFTRIAXONE PMX 1GM/50ML 50 ML IV SCH (12:11)
[2017-09-24 13:30] VITALS: BP 138/72
[2017-09-24 18:48] VITALS: BP 143/77
[2017-09-24] MEDS ORDERED: DEXAMETHASONE 4 MG TABLET ONE (21:30)
[2017-09-24] MEDS: ZOLPIDEM 10MG TABLET PO SCH (21:35)
[2017-09-25 01:47] VITALS: BP 140/71
[2017-09-25] MEDS: OXYcodone IR 30 MG TABLET PO SCH ×4 (06:00→21:00)
[2017-09-25 06:50] VITALS: BP 146/85
[2017-09-25] MEDS: DILTIAZEM 120 MG CAP.ER.24H PO SCH (09:00)
[2017-09-25] MEDS: DOXYCYCLINE 50 MG/5 ML ORAL SUSP PO SCH ×2 (09:07→20:43)
[2017-09-25] MEDS: DEXAMETHASONE INTENSOL 1 MG/ML ORAL SOL PO SCH ×2 (09:07→20:43)
[2017-09-25] MEDS: PREGABALIN 150 MG CAPSULE PO SCH ×2 (09:07→16:01)
[2017-09-25] MEDS: BUPROPION SR 150 MG TABLET PO SCH (09:08)
[2017-09-25] MEDS: SODIUM CHLORIDE FLUSH 10ML SYR IVF SCH ×2 (09:09→20:42)
[2017-09-25] MEDS: FUROSEMIDE 20 MG TABLET PO SCH (09:09)
[2017-09-25] MEDS: AMIODARONE 200 MG TABLET PO SCH ×2 (09:09→20:42)
[2017-09-25] MEDS: CEFTRIAXONE PMX 1GM/50ML 50 ML IV SCH (11:13)
[2017-09-25 12:25] VITALS: BP 145/80
[2017-09-25 12:32] LABS: CLOSTRIDIUM DIFFICILE ANTIGEN NEGATIVE; CLOSTRIDIUM DIFFICILE TOXIN NEGATIVE (Negative)
[2017-09-25 20:06] VITALS: BP 122/65
[2017-09-25] MEDS: ZOLPIDEM 10MG TABLET PO SCH (21:58)
[2017-09-26] MEDS: LOPERAMIDE 1 MG/5 ML, 10ML UDC PO PRN ×3 (00:11→20:54)
[2017-09-26 02:36] VITALS: BP 158/99
[2017-09-26] MEDS: OXYcodone IR 30 MG TABLET PO SCH ×4 (05:51→21:00)
[2017-09-26 06:40] VITALS: BP 143/69
[2017-09-26] MEDS: AMIODARONE 200 MG TABLET PO SCH ×2 (08:55→20:55)
[2017-09-26] MEDS: DILTIAZEM 120 MG CAP.ER.24H PO SCH (08:55)
[2017-09-26] MEDS: FUROSEMIDE 20 MG TABLET PO SCH (08:56)
[2017-09-26] MEDS: PREGABALIN 150 MG CAPSULE PO SCH ×4 (08:56→21:00)
[2017-09-26] MEDS: BUPROPION SR 150 MG TABLET PO SCH (08:56)
[2017-09-26] MEDS: DEXAMETHASONE INTENSOL 1 MG/ML ORAL SOL PO SCH ×2 (08:57→20:54)
[2017-09-26] MEDS: SODIUM CHLORIDE FLUSH 10ML SYR IVF SCH ×2 (08:59→20:55)
[2017-09-26 12:38] VITALS: BP_SYST 117; BP_SYST 150; BP_DIAS 48; BP_DIAS 75
[2017-09-26 13:36] VITALS: BP 135/84
[2017-09-26] MEDS: VILAZODONE PO SCH (16:14)
[2017-09-26 20:00] VITALS: BP 143/86
[2017-09-26] MEDS: ZOLPIDEM 10MG TABLET PO SCH (20:55)
[2017-09-27 04:09] VITALS: BP 152/73
[2017-09-27 04:39] LABS: BASOPHILS % (AUTO) 0 % (0-1); EOSINOPHILS % (AUTO) 0 % (1-7); INTERNATIONAL NORMALIZED RATIO 1.08 (0.93-1.1); LYMPHOCYTES # (AUTO) 0.37 x10^3/uL (1-3.4); LYMPHOCYTES % (AUTO) 3 % (22-44); MD NO; MEAN CORPUSCULAR HEMOGLOBIN 31.5 pg (27.0-34.8); MEAN CORPUSCULAR HGB CONC 33.2 g/dL (32.4-35.8); MEAN PLATELET VOLUME 7.8 fL (7.4-10.4); MONOCYTES % (AUTO) 3 % (2-9); NEUTROPHILS # (AUTO) 10.96 x10^3/uL (1.8-6.8); NEUTROPHILS % (AUTO) 93 % (42-75); PLATELET COUNT 284 x10^3/uL (130-400); PROTHROMBIN TIME 11.1 Seconds (9.6-11.5); RED BLOOD COUNT 3.93 x10^6/uL (3.82-5.3)
[2017-09-27 04:52] LABS: ALBUMIN 2.7 g/dL (3.4-5.0); ANION GAP 5 mmol/L (5-15); CALCIUM 8.5 mg/dL (8.5-10.1); CHLORIDE 103 mmol/L (98-107)
[2017-09-27 04:55] LABS: CREATININE 0.67 mg/dL (0.55-1.02)
[2017-09-27 04:56] LABS: ALANINE AMINOTRANSFERASE 19 U/L (12-78); ALKALINE PHOSPHATASE 89 U/L (45-117); BILIRUBIN,TOTAL 0.3 mg/dL (0.2-1.0); TOTAL PROTEIN 5.7 g/dL (6.4-8.2)
[2017-09-27] MEDS: OXYcodone IR 30 MG TABLET PO SCH ×4 (04:57→21:00)
[2017-09-27] MEDS ORDERED: BUPIVACAINE/PF 0.5% ONE (06:28)
[2017-09-27] MEDS ORDERED: THROMBIN 20,000 UNIT VIAL TP ONE (06:29)
[2017-09-27] MEDS ORDERED: NEOSPORIN OINT, 15GM ONE (06:29)
[2017-09-27] MEDS ORDERED: EPINEPHRINE 1 MG/ML, 1ML ONE (06:29)
[2017-09-27] MEDS ORDERED: MANNITOL PMX 20% 0 ML ONE (06:29)
[2017-09-27] MEDS ORDERED: BACITRACIN 50,000 UNIT ONE (06:29)
[2017-09-27] MEDS ORDERED: GADOBUTROL 10 MMOL/10 ML PFS ONE (07:17)
[2017-09-27 07:56] VITALS: BP 148/88
[2017-09-27] MEDS: SODIUM CHLORIDE FLUSH 10ML SYR IVF SCH ×2 (08:30→20:20)
[2017-09-27] MEDS ORDERED: DEXAMETHASONE 4 MG TABLET ONE (08:37)
[2017-09-27] MEDS ORDERED: PANTOPROZOLE 40MG TABLET ONE (08:42)
[2017-09-27] MEDS: DEXAMETHASONE INTENSOL 1 MG/ML ORAL SOL PO SCH (08:46)
[2017-09-27] MEDS: PANTOPROZOLE 40MG TABLET PO SCH (08:46)
[2017-09-27] MEDS: VILAZODONE PO SCH (08:46)
[2017-09-27] MEDS: AMIODARONE 200 MG TABLET PO SCH ×2 (08:47→20:20)
[2017-09-27] MEDS: FUROSEMIDE 20 MG TABLET PO SCH (08:47)
[2017-09-27] MEDS: PREGABALIN 150 MG CAPSULE PO SCH ×3 (08:47→20:21)
[2017-09-27] MEDS: DILTIAZEM 120 MG CAP.ER.24H PO SCH (08:47)
[2017-09-27] MEDS: BUPROPION SR 150 MG TABLET PO SCH (08:47)
[2017-09-27] MEDS ORDERED: FENTANYL PF 250 MCG/5ML ONE (09:01)
[2017-09-27] MEDS ORDERED: LIDOCAINE-MPF 2% ,5ML ONE (09:03)
[2017-09-27] MEDS ORDERED: CEFAZOLIN 1,000 MG ONE (09:05)
[2017-09-27] MEDS ORDERED: NEOSTIGMINE 1 MG/ML, 10ML ONE (09:05)
[2017-09-27] MEDS ORDERED: ONDANSETRON 2MG/ML, 2ML ONE (09:05)
[2017-09-27] MEDS ORDERED: PROPOFOL 10 MG/ML, 20ML ONE (09:05)
[2017-09-27] MEDS ORDERED: SUCCINYLCHOLINE 20 MG/ML, 10ML ONE (09:05)
[2017-09-27] MEDS ORDERED: DEXAMETHASONE 4 MG/ML, 1ML ONE (09:05)
[2017-09-27] MEDS ORDERED: GLYCOPYRROLATE 0.2MG/1ML, 5ML ONE (09:05)
[2017-09-27] MEDS ORDERED: ROCURONIUM 10 MG/ML,10ML ONE (09:05)
[2017-09-27] MEDS ORDERED: LIDOCAINE GEL 2%, 5ML ONE (09:05)
[2017-09-27] MEDS ORDERED: PHENYLEPHRINE 10 MG/ML ONE (09:35)
[2017-09-27] MEDS ORDERED: HYDROmorphone 1 MG/ML, 1ML IV PRN (11:00)
[2017-09-27] MEDS ORDERED: ONDANSETRON 2MG/ML, 2ML IVPush PRN (11:00)
[2017-09-27] MEDS ORDERED: ACETAMINOPHEN 325 MG TABLET PO PRN (11:00)
[2017-09-27] MEDS ORDERED: MEPERIDINE/PF 25MG/0.5ML IVPush PRN (11:00)
[2017-09-27] MEDS ORDERED: hydrALAzine 20 MG/ML, 1ML IV PRN (11:00)
[2017-09-27] MEDS ORDERED: OXYcodone 5 MG/5 ML ORAL.SOL UDC PO PRN (11:00)
[2017-09-27] MEDS ORDERED: LABETALOL 5MG/ML, 20ML IV PRN ×2 (11:00→15:00)
[2017-09-27] MEDS ORDERED: ALBUTEROL/IPRATROPIUM 2.5MG/0.5MG, 3 ML NPPB PRN (11:00)
[2017-09-27] MEDS ORDERED: MIDAZOLAM 1 MG/ML, 2ML IV PRN (11:00)
[2017-09-27] MEDS ORDERED: LABETALOL 5MG/ML, 20ML ONE (12:27)
[2017-09-27] MEDS ORDERED: hydrALAzine 20 MG/ML, 1ML ONE (12:32)
[2017-09-27] MEDS ORDERED: FENTANYL PF 100 MCG/2ML ONE (13:06)
[2017-09-27] MEDS ORDERED: OXYcodone 5 MG/5 ML ORAL.SOL UDC ONE (13:07)
[2017-09-27] MEDS: FENTANYL PF 100 MCG/2ML IV PRN ×2 (13:10→13:17)
[2017-09-27] MEDS ORDERED: ONDANSETRON 2MG/ML, 2ML IV PRN (15:00)
[2017-09-27] MEDS ORDERED: NS + 20MEQ KCL 1,000 ML IV SCH (15:00)
[2017-09-27] MEDS: DEXAMETHASONE 4 MG/ML, 1ML IV SCH ×2 (15:55→22:04)
[2017-09-27] MEDS: HYDROmorphone 2MG TABLET PO PRN ×2 (15:55→18:02)
[2017-09-27] MEDS: CEFAZOLIN PMX 1GM/50ML 50 ML IVPB SCH (18:06)
[2017-09-27] MEDS: morphine SULFATE 10 MG/ML, 1ML IV PRN (19:37)
[2017-09-27] MEDS: ZOLPIDEM 10MG TABLET PO SCH (20:21)
[2017-09-28] MEDS: CEFAZOLIN PMX 1GM/50ML 50 ML IVPB SCH (02:08)
[2017-09-28] MEDS: HYDROmorphone 2MG TABLET PO PRN (02:41)
[2017-09-28] MEDS: DEXAMETHASONE 4 MG/ML, 1ML IV SCH ×3 (04:40→16:34)
[2017-09-28 05:06] LABS: BASOPHILS % (AUTO) 0 % (0-1); EOSINOPHILS % (AUTO) 0 % (1-7); LYMPHOCYTES # (AUTO) 0.38 x10^3/uL (1-3.4); LYMPHOCYTES % (AUTO) 2 % (22-44); MD NO; MEAN CORPUSCULAR HEMOGLOBIN 31.5 pg (27.0-34.8); MEAN CORPUSCULAR HGB CONC 33.3 g/dL (32.4-35.8); MEAN CORPUSCULAR VOLUME 94.8 fL (80-100); MEAN PLATELET VOLUME 7.6 fL (7.4-10.4); MONOCYTES # (AUTO) 1.13 x10^3/uL (0.2-0.8); MONOCYTES % (AUTO) 7 % (2-9); NEUTROPHILS # (AUTO) 15.43 x10^3/uL (1.8-6.8); NEUTROPHILS % (AUTO) 91 % (42-75); PLATELET COUNT 256 x10^3/uL (130-400); RED BLOOD COUNT 3.35 x10^6/uL (3.82-5.3); RED CELL DISTRIBUTION WIDTH 15.9 % (9.6-15.2)
[2017-09-28 05:18] LABS: ANION GAP 6 mmol/L (5-15); CALCIUM 7.9 mg/dL (8.5-10.1); CHLORIDE 105 mmol/L (98-107); CREATININE 0.53 mg/dL (0.55-1.02)
[2017-09-28] MEDS: OXYcodone IR 30 MG TABLET PO SCH ×4 (06:27→22:23)
[2017-09-28] MEDS: DILTIAZEM 120 MG CAP.ER.24H PO SCH (09:00)
[2017-09-28] MEDS: VILAZODONE PO SCH (09:00)
[2017-09-28] MEDS: FUROSEMIDE 20 MG TABLET PO SCH (09:26)
[2017-09-28] MEDS: AMIODARONE 200 MG TABLET PO SCH ×2 (09:27→22:23)
[2017-09-28] MEDS: PANTOPROZOLE 40MG TABLET PO SCH (09:27)
[2017-09-28] MEDS: PREGABALIN 150 MG CAPSULE PO SCH ×3 (09:27→22:23)
[2017-09-28] MEDS: BUPROPION SR 150 MG TABLET PO SCH (09:27)
[2017-09-28] MEDS ORDERED: [UNRECOGNIZED DRUG - OTHER] PO SCH (10:00)
[2017-09-28] MEDS: morphine SULFATE 10 MG/ML, 1ML IV PRN ×2 (10:54→17:14)
[2017-09-28] MEDS: SODIUM CHLORIDE FLUSH 10ML SYR IVF SCH ×2 (10:55→22:23)
[2017-09-28 19:10] VITALS: BP 137/83
[2017-09-28] MEDS: ZOLPIDEM 10MG TABLET PO SCH (22:23)
[2017-09-29 01:15] VITALS: BP 130/78
[2017-09-29] MEDS: morphine SULFATE 10 MG/ML, 1ML IV PRN ×4 (04:20→19:57)
[2017-09-29 04:22] LABS: BASOPHILS # (AUTO) 0.01 x10^3/uL (0-0.1); BASOPHILS % (AUTO) 0 % (0-1); EOSINOPHILS % (AUTO) 0 % (1-7); LYMPHOCYTES # (AUTO) 0.35 x10^3/uL (1-3.4); LYMPHOCYTES % (AUTO) 2 % (22-44); MD NO; MEAN CORPUSCULAR HEMOGLOBIN 31.4 pg (27.0-34.8); MEAN CORPUSCULAR HGB CONC 33.1 g/dL (32.4-35.8); MEAN CORPUSCULAR VOLUME 94.9 fL (80-100); MEAN PLATELET VOLUME 7.4 fL (7.4-10.4); MONOCYTES # (AUTO) 1.09 x10^3/uL (0.2-0.8); MONOCYTES % (AUTO) 7 % (2-9); NEUTROPHILS # (AUTO) 14.93 x10^3/uL (1.8-6.8); NEUTROPHILS % (AUTO) 91 % (42-75); PLATELET COUNT 230 x10^3/uL (130-400); RED BLOOD COUNT 3.58 x10^6/uL (3.82-5.3); RED CELL DISTRIBUTION WIDTH 16.2 % (9.6-15.2)
[2017-09-29 04:30] LABS: ANION GAP 3 mmol/L (5-15); CALCIUM 7.8 mg/dL (8.5-10.1); CHLORIDE 104 mmol/L (98-107); CREATININE 0.64 mg/dL (0.55-1.02)
[2017-09-29] MEDS: OXYcodone IR 30 MG TABLET PO SCH ×4 (05:46→19:58)
[2017-09-29] MEDS ORDERED: DEXAMETHASONE 4 MG TABLET PO SCH ×2 (07:30→17:00)
[2017-09-29 08:38] VITALS: BP 135/70
[2017-09-29] MEDS: VILAZODONE PO SCH (08:49)
[2017-09-29] MEDS: PANTOPROZOLE 40MG TABLET PO SCH (08:49)
[2017-09-29] MEDS: SODIUM CHLORIDE FLUSH 10ML SYR IVF SCH ×2 (08:49→19:58)
[2017-09-29] MEDS: AMIODARONE 200 MG TABLET PO SCH ×2 (08:50→19:58)
[2017-09-29] MEDS: DILTIAZEM 120 MG CAP.ER.24H PO SCH (08:50)
[2017-09-29] MEDS: DEXAMETHASONE 4 MG TABLET PO SCH ×2 (08:51→16:35)
[2017-09-29] MEDS: BUPROPION SR 150 MG TABLET PO SCH (08:51)
[2017-09-29] MEDS: PREGABALIN 150 MG CAPSULE PO SCH ×3 (08:51→19:58)
[2017-09-29] MEDS: FUROSEMIDE 20 MG TABLET PO SCH (08:51)
[2017-09-29 13:16] VITALS: BP 139/74
[2017-09-29 19:41] VITALS: BP 118/69
[2017-09-29] MEDS: ZOLPIDEM 10MG TABLET PO SCH (19:57)
[2017-09-30 04:33] VITALS: BP 150/79
[2017-09-30 05:05] LABS: BASOPHILS % (AUTO) 0 % (0-1); EOSINOPHILS % (AUTO) 0 % (1-7); LYMPHOCYTES # (AUTO) 0.49 x10^3/uL (1-3.4); LYMPHOCYTES % (AUTO) 4 % (22-44); MD NO; MEAN CORPUSCULAR HEMOGLOBIN 31.8 pg (27.0-34.8); MEAN CORPUSCULAR HGB CONC 33.5 g/dL (32.4-35.8); MEAN PLATELET VOLUME 7.6 fL (7.4-10.4); MONOCYTES # (AUTO) 0.87 x10^3/uL (0.2-0.8); MONOCYTES % (AUTO) 7 % (2-9); NEUTROPHILS # (AUTO) 11.32 x10^3/uL (1.8-6.8); NEUTROPHILS % (AUTO) 89 % (42-75); PLATELET COUNT 224 x10^3/uL (130-400); RED BLOOD COUNT 3.49 x10^6/uL (3.82-5.3); RED CELL DISTRIBUTION WIDTH 15.9 % (9.6-15.2)
[2017-09-30] MEDS: morphine SULFATE 10 MG/ML, 1ML IV PRN ×2 (05:06→08:15)
[2017-09-30 05:07] LABS: ANION GAP 5 mmol/L (5-15); CALCIUM 8.7 mg/dL (8.5-10.1); CHLORIDE 104 mmol/L (98-107)
[2017-09-30 05:08] LABS: CREATININE 0.59 mg/dL (0.55-1.02)
[2017-09-30] MEDS: OXYcodone IR 30 MG TABLET PO SCH ×5 (06:09→23:55)
[2017-09-30 07:41] VITALS: BP 152/75
[2017-09-30] MEDS: PANTOPROZOLE 40MG TABLET PO SCH (08:13)
[2017-09-30] MEDS: FUROSEMIDE 20 MG TABLET PO SCH (08:13)
[2017-09-30] MEDS: PREGABALIN 150 MG CAPSULE PO SCH ×3 (08:13→21:20)
[2017-09-30] MEDS: BUPROPION SR 150 MG TABLET PO SCH (08:13)
[2017-09-30] MEDS: AMIODARONE 200 MG TABLET PO SCH ×2 (08:13→21:20)
[2017-09-30] MEDS: DEXAMETHASONE 4 MG TABLET PO SCH ×2 (08:14→16:17)
[2017-09-30] MEDS: SODIUM CHLORIDE FLUSH 10ML SYR IVF SCH ×2 (08:14→21:20)
[2017-09-30] MEDS: VILAZODONE PO SCH (08:15)
[2017-09-30] MEDS ORDERED: FENTANYL 50 MCG PATCH TD SCH (09:30)
[2017-09-30] MEDS: DILTIAZEM 120 MG CAP.ER.24H PO SCH (10:36)
[2017-09-30] MEDS ORDERED: morphine SULFATE 10 MG/ML, 1ML IV PRN (14:15)
[2017-09-30 14:21] VITALS: BP 154/86
[2017-09-30] MEDS ORDERED: CALCIUM CARBONATE 500 MG TAB.CHEW PO PRN (16:30)
[2017-09-30 19:38] VITALS: BP 151/78
[2017-09-30] MEDS: ZOLPIDEM 10MG TABLET PO SCH (21:20)
[2017-10-01 00:38] VITALS: BP 145/75
[2017-10-01 04:34] LABS: BASOPHILS # (AUTO) 0.02 x10^3/uL (0-0.1); BASOPHILS % (AUTO) 0 % (0-1); EOSINOPHILS # (AUTO) 0.01 x10^3/uL (0-0.4); EOSINOPHILS % (AUTO) 0 % (1-7); LYMPHOCYTES % (AUTO) 5 % (22-44); MD NO; MEAN CORPUSCULAR HEMOGLOBIN 31.4 pg (27.0-34.8); MEAN CORPUSCULAR HGB CONC 33.3 g/dL (32.4-35.8); MEAN CORPUSCULAR VOLUME 94.1 fL (80-100); MEAN PLATELET VOLUME 7.6 fL (7.4-10.4); MONOCYTES # (AUTO) 0.74 x10^3/uL (0.2-0.8); MONOCYTES % (AUTO) 8 % (2-9); NEUTROPHILS # (AUTO) 8.49 x10^3/uL (1.8-6.8); NEUTROPHILS % (AUTO) 87 % (42-75); PLATELET COUNT 228 x10^3/uL (130-400); RED BLOOD COUNT 3.57 x10^6/uL (3.82-5.3); RED CELL DISTRIBUTION WIDTH 15.3 % (9.6-15.2)
[2017-10-01 04:40] LABS: ANION GAP 4 mmol/L (5-15); CALCIUM 8.4 mg/dL (8.5-10.1); CHLORIDE 101 mmol/L (98-107); CREATININE 0.45 mg/dL (0.55-1.02)
[2017-10-01] MEDS: OXYcodone IR 30 MG TABLET PO SCH ×2 (05:47→11:23)
[2017-10-01 06:58] VITALS: BP 153/69
[2017-10-01] MEDS ORDERED: APIX5TAB PO (07:37)
[2017-10-01] MEDS ORDERED: FENT1PAT76 TD (07:37)
[2017-10-01] MEDS ORDERED: POLY17PO5 PO (07:37)
[2017-10-01] MEDS ORDERED: CALC200T24 PO (07:37)
[2017-10-01] MEDS ORDERED: DEXA4TAB PO (07:37)
[2017-10-01] MEDS ORDERED: SIMV10TA PO (07:40)
[2017-10-01] MEDS: DEXAMETHASONE 4 MG TABLET PO SCH (08:15)
[2017-10-01] MEDS: BUPROPION SR 150 MG TABLET PO SCH (08:15)
[2017-10-01] MEDS: PREGABALIN 150 MG CAPSULE PO SCH (08:15)
[2017-10-01] MEDS: AMIODARONE 200 MG TABLET PO SCH (08:15)
[2017-10-01] MEDS: FUROSEMIDE 20 MG TABLET PO SCH (08:15)
[2017-10-01] MEDS: PANTOPROZOLE 40MG TABLET PO SCH (08:15)
[2017-10-01] MEDS: VILAZODONE PO SCH (08:16)
[2017-10-01] MEDS: DILTIAZEM 120 MG CAP.ER.24H PO SCH (08:16)
[2017-10-01] MEDS: SODIUM CHLORIDE FLUSH 10ML SYR IVF SCH (08:16)
[2017-10-03] MEDS ORDERED: FENTANYL REMOVE PATCH NOTE XX SCH (10:00)
== END 2017-10-01 14:30 | disposition home health service (06) | DRG 25 ==
LOC: ED 06:23 → EDIP 10:05 → 3NW 13:40 → CCU 09-27 11:05 → 3NW 09-28 16:36 → UNDODISIN 10-01 12:35
PROVIDERS: ADMIT Hospitalist; ATTEND Hospitalist
PROC: 00B00ZZ Excision of Brain, Open Approach (ICD-10-PCS; principal; 2017-09-27 09:30)
DX: C79.31 Secondary malignant neoplasm of brain (principal); J18.9 Pneumonia, unspecified organism; G93.6 Cerebral edema; J96.10 Chronic respiratory failure, unspecified whether with hypoxia or hypercapnia; I11.9 Hypertensive heart disease without heart failure; I48.0 Paroxysmal atrial fibrillation; J98.11 Atelectasis; J44.0 Chronic obstructive pulmonary disease with (acute) lower respiratory infection; J44.1 Chronic obstructive pulmonary disease with (acute) exacerbation; E78.5 Hyperlipidemia, unspecified; E87.6 Hypokalemia; F32.9 Major depressive disorder, single episode, unspecified; F41.1 Generalized anxiety disorder; G89.29 Other chronic pain; M51.36 Other intervertebral disc degeneration, lumbar region; M79.7 Fibromyalgia; N81.4 Uterovaginal prolapse, unspecified; T38.0X5A Adverse effect of glucocorticoids and synthetic analogues, initial encounter; W01.0XXA Fall on same level from slipping, tripping and stumbling without subsequent striking against object, initial encounter; Z77.22 Contact with and (suspected) exposure to environmental tobacco smoke (acute) (chronic); Z96.659 Presence of unspecified artificial knee joint; Z96.641 Presence of right artificial hip joint; M48.061 Spinal stenosis, lumbar region without neurogenic claudication; Z17.0 Estrogen receptor positive status [ER+]; Z82.49 Family history of ischemic heart disease and other diseases of the circulatory system; Z90.10 Acquired absence of unspecified breast and nipple; Z90.49 Acquired absence of other specified parts of digestive tract; Z91.041 Radiographic dye allergy status; Z92.21 Personal history of antineoplastic chemotherapy; Z92.3 Personal history of irradiation; Z85.3 Personal history of malignant neoplasm of breast; Y93.89 Activity, other specified; Y92.098 Other place in other non-institutional residence as the place of occurrence of the external cause; Y99.8 Other external cause status; Z90.89 Acquired absence of other organs
CPT/HCPCS: 36415; 70450; 70553; 71045; 71250; 72158; 72190; 74176; 74183; 78306; 80048; 80053; 82550; 83735; 85025; 85610; 85730; 87040; 87081; 87324; 88305; 88331; 88341; 88342; 88360; 89055; 93005; 94640; A9585; C1713; J0171; J0690; J0696; J1100; J2405; J2543; J2704; J2710; J3010; J3480; J3490; J7620; A4648; A9503; C9898; G0461; J0330; J0360; J2060; J2270; J2370; J7030; Q0163; Q0177

== ENCOUNTER → 2017-09-20 | Outpatient (CLI) | payer MEDICARE ==
[~2017-09-20] MED LIST changes: +GADOBUTROL 10 MMOL/10 ML VIAL ONE
== END | disposition home or self-care (01) ==
LOC: CFH 11:58
PROVIDERS: ATTEND Internal Medicine Hematology & Oncology
DX: N63.10 Unspecified lump in the right breast, unspecified quadrant (principal); N63.20 Unspecified lump in the left breast, unspecified quadrant; R92.1 Mammographic calcification found on diagnostic imaging of breast; Z92.3 Personal history of irradiation; Z85.3 Personal history of malignant neoplasm of breast
CPT/HCPCS: 76642; A9585; 77066

== ENCOUNTER 2017-10-03 15:40 | Inpatient (IN) | payer MEDICARE ==
[~2017-10-03] VITALS: Ht 160 cm; Wt 88.2 kg
[~2017-10-03 15:40] MED LIST changes: +CALC200T24 PO; +DEXA4TAB PO; +FENT1PAT76 TD; -GADOBUTROL 10 MMOL/10 ML VIAL ONE; +POLY17PO5 PO; +SIMV10TA PO
[2017-10-03] MEDS ORDERED: PLEASE ENTER HEIGHT AND WEIGHT MC SCH (16:00)
[2017-10-03] MEDS ORDERED: SODIUM CHLORIDE FLUSH 10ML SYR IVF ONE (16:00)
[2017-10-03 16:23] LABS: BASOPHILS # (AUTO) 0.01 x10^3/uL (0-0.1); BASOPHILS % (AUTO) 0 % (0-1); EOSINOPHILS % (AUTO) 0 % (1-7); LYMPHOCYTES # (AUTO) 0.22 x10^3/uL (1-3.4); LYMPHOCYTES % (AUTO) 3 % (22-44); MD NO; MEAN CORPUSCULAR HEMOGLOBIN 31.6 pg (27.0-34.8); MEAN CORPUSCULAR HGB CONC 33.9 g/dL (32.4-35.8); MEAN CORPUSCULAR VOLUME 93.4 fL (80-100); MEAN PLATELET VOLUME 7.4 fL (7.4-10.4); MONOCYTES # (AUTO) 0.28 x10^3/uL (0.2-0.8); MONOCYTES % (AUTO) 3 % (2-9); NEUTROPHILS # (AUTO) 7.93 x10^3/uL (1.8-6.8); NEUTROPHILS % (AUTO) 94 % (42-75); PLATELET COUNT 251 x10^3/uL (130-400); RED BLOOD COUNT 3.37 x10^6/uL (3.82-5.3); RED CELL DISTRIBUTION WIDTH 15.5 % (9.6-15.2)
[2017-10-03 16:31] LABS: ANION GAP 4 mmol/L (5-15); CALCIUM 8.6 mg/dL (8.5-10.1); CHLORIDE 99 mmol/L (98-107); CREATININE 0.62 mg/dL (0.55-1.02)
[2017-10-03] MEDS ORDERED: FENTANYL 25 MCG PATCH TD PRN (17:30)
[2017-10-03] MEDS ORDERED: DOCUSATE 100 MG CAPSULE PO PRN (17:30)
[2017-10-03] MEDS ORDERED: CALCIUM CARBONATE 500 MG TAB.CHEW PO PRN (17:30)
[2017-10-03] MEDS ORDERED: ACETAMINOPHEN 325 MG TABLET PO PRN (17:30)
[2017-10-03] MEDS ORDERED: ENALAPRILAT 1.25 MG/ML, 2ML IVPush PRN (17:30)
[2017-10-03] MEDS ORDERED: POLYETHYLENE GLYCOL 17 GM PACKET PO PRN (17:30)
[2017-10-03] MEDS ORDERED: ONDANSETRON 2MG/ML, 2ML IVPush PRN (17:30)
[2017-10-03] MEDS ORDERED: ONDANSETRON ODT 4 MG PO PRN (17:30)
[2017-10-03] MEDS ORDERED: LABETALOL 5MG/ML, 20ML IVPush PRN (17:30)
[2017-10-03] MEDS ORDERED: BISACODYL 10 MG SUPP PR PRN (17:30)
[2017-10-03 17:33] VITALS: BP 165/75
[2017-10-03] MEDS ORDERED: OXYcodone IR 5MG TABLET ONE (18:28)
[2017-10-03] MEDS: OXYcodone IR 30 MG TABLET PO SCH ×2 (18:30→21:38)
[2017-10-03 21:18] VITALS: BP 159/72
[2017-10-03] MEDS: AMIODARONE 200 MG TABLET PO SCH (21:36)
[2017-10-03] MEDS: PREGABALIN 150 MG CAPSULE PO SCH (21:37)
[2017-10-03] MEDS: SIMVASTATIN 10 MG TABLET PO SCH (21:37)
[2017-10-03] MEDS: ZOLPIDEM 10MG TABLET PO SCH (21:38)
[2017-10-04] VITALS (12 sets, daily range): BP systolic 129–176; BP diastolic 69–85
[2017-10-04] MEDS: OXYcodone IR 30 MG TABLET PO SCH ×4 (05:52→21:00)
[2017-10-04 06:11] LABS: ANION GAP 5 mmol/L (5-15); CALCIUM 8.9 mg/dL (8.5-10.1); CHLORIDE 101 mmol/L (98-107); CREATININE 0.57 mg/dL (0.55-1.02)
[2017-10-04 06:19] LABS: BASOPHILS % (AUTO) 0 % (0-1); EOSINOPHILS # (AUTO) 0.01 x10^3/uL (0-0.4); EOSINOPHILS % (AUTO) 0 % (1-7); LYMPHOCYTES % (AUTO) 8 % (22-44); MD NO; MEAN CORPUSCULAR HEMOGLOBIN 32.2 pg (27.0-34.8); MEAN CORPUSCULAR HGB CONC 33.7 g/dL (32.4-35.8); MEAN CORPUSCULAR VOLUME 95.6 fL (80-100); MEAN PLATELET VOLUME 7.5 fL (7.4-10.4); MONOCYTES # (AUTO) 0.66 x10^3/uL (0.2-0.8); MONOCYTES % (AUTO) 7 % (2-9); NEUTROPHILS % (AUTO) 85 % (42-75); PLATELET COUNT 245 x10^3/uL (130-400); RED BLOOD COUNT 3.81 x10^6/uL (3.82-5.3); RED CELL DISTRIBUTION WIDTH 15.6 % (9.6-15.2)
[2017-10-04 07:01] LABS: CLOSTRIDIUM DIFFICILE ANTIGEN NEGATIVE; CLOSTRIDIUM DIFFICILE TOXIN NEGATIVE (Negative)
[2017-10-04] MEDS: DEXAMETHASONE 4 MG TABLET PO SCH ×2 (08:16→17:20)
[2017-10-04] MEDS: SENNA/DOCUSATE TABLET PO SCH (08:17)
[2017-10-04] MEDS: FUROSEMIDE 20 MG TABLET PO SCH (08:17)
[2017-10-04] MEDS: AMIODARONE 200 MG TABLET PO SCH ×2 (08:17→21:09)
[2017-10-04] MEDS: BUPROPION SR 150 MG TABLET PO SCH (08:17)
[2017-10-04] MEDS: PREGABALIN 150 MG CAPSULE PO SCH ×3 (08:17→21:08)
[2017-10-04] MEDS: MULTIVITAMINS/MINERALS TABLET PO SCH (08:17)
[2017-10-04 10:51] LABS: MICROSCOPIC NOT IND
[2017-10-04 11:02] LABS: CULTURE INDICATED? NO
[2017-10-04] MEDS: ZOLPIDEM 10MG TABLET PO SCH (21:08)
[2017-10-04] MEDS: SIMVASTATIN 10 MG TABLET PO SCH (21:08)
[2017-10-05 00:02] VITALS: BP 164/73
[2017-10-05] MEDS: OXYcodone IR 30 MG TABLET PO SCH ×4 (05:02→20:40)
[2017-10-05 06:55] VITALS: BP 178/78
[2017-10-05] MEDS: MULTIVITAMINS/MINERALS TABLET PO SCH (09:00)
[2017-10-05] MEDS: LORATADINE 10 MG TABLET PO SCH (09:09)
[2017-10-05] MEDS: DEXAMETHASONE 4 MG TABLET PO SCH ×2 (09:09→16:24)
[2017-10-05] MEDS: BUPROPION SR 150 MG TABLET PO SCH (09:09)
[2017-10-05] MEDS: SENNA/DOCUSATE TABLET PO SCH (09:09)
[2017-10-05] MEDS: AMIODARONE 200 MG TABLET PO SCH ×2 (09:09→20:39)
[2017-10-05] MEDS: FUROSEMIDE 20 MG TABLET PO SCH (09:09)
[2017-10-05] MEDS: PREGABALIN 150 MG CAPSULE PO SCH ×3 (09:09→20:39)
[2017-10-05] MEDS ORDERED: LIDOCAINE 1%, 20ML ONE (13:25)
[2017-10-05] MEDS ORDERED: LORazepam 0.5MG TABLET PO PRN (13:30)
[2017-10-05 15:04] VITALS: BP 150/79
[2017-10-05 19:40] VITALS: BP 145/82
[2017-10-05] MEDS: ZOLPIDEM 10MG TABLET PO SCH (20:39)
[2017-10-05] MEDS: SIMVASTATIN 10 MG TABLET PO SCH (20:39)
[2017-10-06 01:26] VITALS: BP 145/82
[2017-10-06] MEDS: OXYcodone IR 30 MG TABLET PO SCH ×3 (05:08→15:37)
[2017-10-06 05:25] LABS: BASOPHILS % (AUTO) 0 % (0-1); EOSINOPHILS # (AUTO) 0.11 x10^3/uL (0-0.4); EOSINOPHILS % (AUTO) 1 % (1-7); LYMPHOCYTES % (AUTO) 9 % (22-44); MD NO; MEAN CORPUSCULAR HEMOGLOBIN 31.5 pg (27.0-34.8); MEAN CORPUSCULAR HGB CONC 33.2 g/dL (32.4-35.8); MEAN PLATELET VOLUME 7.4 fL (7.4-10.4); MONOCYTES # (AUTO) 0.55 x10^3/uL (0.2-0.8); MONOCYTES % (AUTO) 7 % (2-9); NEUTROPHILS # (AUTO) 6.39 x10^3/uL (1.8-6.8); NEUTROPHILS % (AUTO) 83 % (42-75); PLATELET COUNT 227 x10^3/uL (130-400); RED BLOOD COUNT 3.36 x10^6/uL (3.82-5.3); RED CELL DISTRIBUTION WIDTH 15.5 % (9.6-15.2)
[2017-10-06 05:48] LABS: CALCIUM 8.3 mg/dL (8.5-10.1); CREATININE 0.54 mg/dL (0.55-1.02)
[2017-10-06 05:58] LABS: ANION GAP 5 mmol/L (5-15); CHLORIDE 101 mmol/L (98-107)
[2017-10-06 07:27] VITALS: BP 166/84
[2017-10-06] MEDS: FUROSEMIDE 20 MG TABLET PO SCH (08:28)
[2017-10-06] MEDS: BUPROPION SR 150 MG TABLET PO SCH (08:29)
[2017-10-06] MEDS: PREGABALIN 150 MG CAPSULE PO SCH ×2 (08:29→15:37)
[2017-10-06] MEDS: SENNA/DOCUSATE TABLET PO SCH (08:29)
[2017-10-06] MEDS: AMIODARONE 200 MG TABLET PO SCH (08:29)
[2017-10-06] MEDS: MULTIVITAMINS/MINERALS TABLET PO SCH (08:29)
[2017-10-06] MEDS: LORATADINE 10 MG TABLET PO SCH (08:29)
[2017-10-06] MEDS: DEXAMETHASONE 4 MG TABLET PO SCH ×2 (08:31→15:37)
[2017-10-06 14:41] VITALS: BP 151/75
[2017-10-06] MEDS ORDERED: FENTANYL 50 MCG PATCH ONE (15:34)
== END 2017-10-06 17:52 | DRG 641 ==
LOC: ED 16:58 → EDIP 17:29 → 3NW 17:46
PROVIDERS: ADMIT Hospitalist; ATTEND Hospitalist
DX: R62.7 Adult failure to thrive (principal); J96.10 Chronic respiratory failure, unspecified whether with hypoxia or hypercapnia; C79.31 Secondary malignant neoplasm of brain; D68.69 Other thrombophilia; I48.0 Paroxysmal atrial fibrillation; Z99.81 Dependence on supplemental oxygen; J44.9 Chronic obstructive pulmonary disease, unspecified; D64.9 Anemia, unspecified; I11.9 Hypertensive heart disease without heart failure; M79.7 Fibromyalgia; F32.9 Major depressive disorder, single episode, unspecified; G89.29 Other chronic pain; M25.562 Pain in left knee; F41.1 Generalized anxiety disorder; Z90.49 Acquired absence of other specified parts of digestive tract; Z82.49 Family history of ischemic heart disease and other diseases of the circulatory system; Z85.3 Personal history of malignant neoplasm of breast; Z90.12 Acquired absence of left breast and nipple; Z80.9 Family history of malignant neoplasm, unspecified
CPT/HCPCS: 36415; 70450; 72050; 72072; 72110; 76942; 80048; 81003; 82040; 84443; 85025; 87324; 93005; 99285; J3490